=== PATIENT | male | born 1990 | race Caucasian/White ===

== ENCOUNTER 2024-09-09 09:02 | Emergency (ER) | payer BC ==
[~2024-09-09] VITALS: Ht 177.8 cm; Wt 72.6 kg
[2024-09-09] MEDS: ASPIRIN 325 MG TAB PO ONE (10:16)
[2024-09-09 11:12] VITALS: PULSE 64; RESP 18; TEMP 98.3; O2SAT 98
== END 2024-09-09 11:14 | disposition home or self-care (01) ==
LOC: FSED 09:07
DX: R07.89 Other chest pain (principal); I10 Essential (primary) hypertension; E78.5 Hyperlipidemia, unspecified; K21.9 Gastro-esophageal reflux disease without esophagitis; R94.31 Abnormal electrocardiogram [ECG] [EKG]; F17.290 Nicotine dependence, other tobacco product, uncomplicated
CPT/HCPCS: 71046; 93005; 99284